=== PATIENT | male | born 1965 | race African-American/Black ===

== ENCOUNTER 2020-12-12 11:47 | Inpatient (IN) | payer OTHER ==
[~2020-12-12] VITALS: Ht 162.6 cm; Wt 65.5 kg
[2020-12-12 11:52] VITALS: BP 111/69
[2020-12-12 14:50] LABS: ABSOLUTE NEUTROPHILS 10.2 thou/uL (1.4-8.2); BASOPHILS 0.3 % (0.0-2.0); HEMATOCRIT 41.2 % (42.0-52.0); HEMOGLOBIN 13.4 gm/dL (14.0-18.0); LYMPHOCYTES 5.6 % (24.0-44.0); MCH 28.3 pg (26.0-34.0); MCHC 32.5 g/dL (28.0-37.0); MONOCYTES 12.4 % (1.0-8.0); PLATELET COUNT 270 thou/uL (150-400); POLYS 81.7 % (36.0-66.0); RBC 4.73 mil/uL (4.50-6.00); RDW 14.3 % (10.5-14.5); WBC 12.5 thou/uL (4.0-11.0)
[2020-12-12 15:06] LABS: CALCIUM 9.5 mg/dL (8.5-10.1); CREATININE 1.5 mg/dL (0.7-1.3); POTASSIUM 4.3 mmol/L (3.5-5.1)
[2020-12-12 15:12] LABS: TOTAL BILIRUBIN 0.6 mg/dL (0.2-1.0); TOTAL PROTEIN 8.4 g/dL (6.4-8.2)
[2020-12-12 15:22] LABS: URINE BILIRUBIN NEGATIVE (Negative); URINE BLOOD 3+ (Negative); URINE CLARITY CLEAR; URINE COLOR YELLOW; URINE GLUCOSE-RANDOM* NEGATIVE (Negative); URINE KETONES NEGATIVE (Negative); URINE LEUKOCYTES-REFLEX 3+ (Negative); URINE NITRITE-REFLEX NEGATIVE (Negative); URINE PROTEIN (DIPSTICK) 2+ (Negative)
[2020-12-12 15:36] LABS: SQUAMOUS 4-10 Moderate /LPF (0-3)
[2020-12-12 15:37] LABS: BACTERIA-REFLEX >30 Many /HPF (None Seen); CRYSTALS None Seen /LPF (None Seen)
[2020-12-12 15:38] LABS: COARSE GRANULAR CASTS 0-3 Few /LPF (None Seen)
[2020-12-12 17:03] VITALS: BP 88/56
[2020-12-12 17:20] VITALS: BP 95/54
--- NOTE | 2020-12-12 19:46 | NUR ---
Pt transferred from ER by tech and arrived on the unit at 17:30. Pt assessed and examined. Pt resting comfortably with no distress at this time. Sister is bedside as designated visitor. RN will continue to monitor.
[2020-12-12 20:46] VITALS: BP 125/81
[2020-12-13 00:06] LABS: GLYCOHEMOGLOBIN (HGB A1C) 6.5 % (4.8-5.6)
[2020-12-13 03:45] VITALS: BP 128/73
[2020-12-13 05:27] LABS: CALCIUM 8.7 mg/dL (8.5-10.1); CREATININE 1.4 mg/dL (0.7-1.3); MAGNESIUM 1.6 mg/dL (1.8-2.4); POTASSIUM 4.1 mmol/L (3.5-5.1)
[2020-12-13 05:58] LABS: ABSOLUTE NEUTROPHILS 9.5 thou/uL (1.4-8.2); BASOPHILS 0.4 % (0.0-2.0); HEMATOCRIT 36.3 % (42.0-52.0); HEMOGLOBIN 11.9 gm/dL (14.0-18.0); LYMPHOCYTES 6.5 % (24.0-44.0); MCH 28.5 pg (26.0-34.0); MCHC 32.7 g/dL (28.0-37.0); MCV 87.3 fL (80.0-100.0); MONOCYTES 14.4 % (1.0-8.0); PLATELET COUNT 198 thou/uL (150-400); POLYS 78.7 % (36.0-66.0); RBC 4.16 mil/uL (4.50-6.00); RDW 14.4 % (10.5-14.5)
[2020-12-13 08:01] VITALS: BP 117/84
--- NOTE | 2020-12-13 13:38 | NUR ---
PT ADMITTED RELATED TO UTI, SEPSIS. CM REVIEWED CHART AND SPOKE WITH CARE TEAM. CM MET WITH PT AT BEDSIDE THIS DAY. PT APPEARED TO BE A&O X4. CM ROLE INTRODUCED. PT INDICATED THAT HE RESIDES IN A CONDO WITH HIS SISTER WITH 12 STEPS TO ENTER AND 12 STEPS INSIDE. PT INDICATED HE HAD BEEN INDEPENDENT WITH GAIT AND ADLS MFTS. PT INDICATED NO DME OR HH HX. PT INIDCATED HIS PCP IS DR. ODALYS CLIFTON AND THAT HE HAD AN APPOINTMENT ON FRIDAY TO SEE HIM BUT THAT HE CAME TO HOSPITAL HE WAS FEELING THAT BADLY. PT INDICATED THAT HE PLANS TO RETURN HOME ONCE MEDICALLY STABLE. CM TO FOLLOW INDICATED WITH DC PLANNING.
[2020-12-13] MEDS ORDERED: COZAAR 25 MG TA25 M1 PO (15:12)
[2020-12-13] MEDS ORDERED: ROSUVASTATIN CA10 MG PO (15:13)
[2020-12-13] MEDS ORDERED: TIMOLOL MALEATE5 M2 OPHTHALMIC (15:15)
[2020-12-13] MEDS ORDERED: PROAIR HFA8.5 GM INH (15:17)
[2020-12-13] MEDS ORDERED: SYMBICORT160 MCG/4. INH (15:18)
--- NOTE | 2020-12-13 16:14 | NUR ---
ASSUMED CARE OF PATIENT AT SHIFT CHNAGE. ASSESSMENT CHARTED. TEMP HIGH; TYLENOL ADMINISTERED FOR FEVER AND HEADACHE Q4HRS. MED REC COMPLETE & PHARMACY CONSULTED. PATIENT IS A&OX4 AND MAKES NEEDS KNOWN. PATIENT STATES HE IS "TIRED" AND WANTS TO SLEEP. PATIENT IN BED MOST OF THIS SHIFT, USING URINAL NEEDED. HAD BM THIS MORNING. TOLERATING REGULAR DIET WELL W NO ISSUES. ABX INFUSING W NO ISSUES. HR STABLIZING THIS SHIFT FROM ST TO SR. SPOUSE AT BEDSIDE. PATIENT VOICING NO FURTHER NEEDS. WILL CONTINUE TO MONITOR AND FOLLOW PLAN OF CARE
--- NOTE | 2020-12-13 17:33 | NUR ---
faxed clinical info to [facility] transfer center & s/w transfer center by phone. they are asking if a rapid covid test can be done. s/W FL[employer] LOCATE TECHNICIAN & SHE SAYS IT WOULD NOT BE BACK TILL LATE THIS JOHN OR IN AM. INFORMED [facility] & THEY ASKED FOR ONE TO BE ORDERED. INFORMED DR CHRIS & S/W SALBADOR MAK ON THE UNIT WHO WILL INFORM PT'S SALBADOR ESPINOZA OF THE NEED FOR THE RAPID COVID TEST TO BE DONE.
[2020-12-13 20:29] VITALS: BP 139/87
[2020-12-14 05:47] LABS: HEMATOCRIT 34.7 % (42.0-52.0); HEMOGLOBIN 11.3 gm/dL (14.0-18.0); MCH 28.4 pg (26.0-34.0); MCHC 32.5 g/dL (28.0-37.0); MCV 87.4 fL (80.0-100.0); RBC 3.97 mil/uL (4.50-6.00); RDW 14.1 % (10.5-14.5); WBC 8.6 thou/uL (4.0-11.0)
[2020-12-14 06:25] LABS: CALCIUM 8.8 mg/dL (8.5-10.1); CREATININE 1.2 mg/dL (0.7-1.3); POTASSIUM 3.7 mmol/L (3.5-5.1)
[2020-12-14 08:19] VITALS: BP 144/94
--- NOTE | 2020-12-14 08:35 | NUR ---
CM REQUESTED FROM RADIOLOGY TO HAVE IMAGES CLOUDED TO [facility]
[2020-12-14] MEDS ORDERED: KEFLEX500 M1 PO (09:03)
--- NOTE | 2020-12-14 09:35 | NUR ---
CM FAXED COVID RESULTS TO [facility] [phone] (F) [phone] (P).
[2020-12-14 11:56] VITALS: BP 149/92
[2020-12-14 13:00] VITALS: BP 132/91
--- NOTE | 2020-12-14 14:06 | NUR ---
cm was informed by pt's rn, family wanted to speak with cm r/t insurance as pt and wanted to know the cost to stay at [facility] oppose to going to a [facility]. cm informed them cm does not to the increase co-pay cost and advised them to contact the HR dept at pt's company and/or insurance company. pt and , both, verbally stated they would like to stay at [facility], oppose to transfering to [facility] being fully aware of higher co-pay.
[2020-12-14 16:34] VITALS: BP 131/77
[2020-12-14 20:50] VITALS: BP 146/92
--- NOTE | 2020-12-15 04:33 | NUR ---
VSS-FEBRILE SPORADICALLY THROUGH [employer] LENS POLISHER. C/O RIGHT FLANK PAIN THAT IS RELIEVED WITH PO TYLENOL. FAIR APPETITE WITH OCCASIONAL SNACKING. VOIDING WELL, PASSING FLATUS. CALLS APPROPRIATELY FOR ANY NEEDED ASSISTANCE.
[2020-12-15 07:40] VITALS: BP 140/94
--- NOTE | 2020-12-15 10:12 | NUR ---
ASSUMED CARE OF PT AT 0700 12/14. PT WAS TO BE DISCHARGED LATER IN THE DAY TRANSFERRING TO [facility]. PT WAS A&OX4, SKIN W/D/P AND INTACT. CR<3SEC, NO TENTING, LUNGS WITH SLIGHT WHEEZING UPPER LOBES BILAT, IV IN RT AC, EYES PERRLA, PT C/O RIGHT FLANK PAIN. CALL LIGHT AND ITEMS PLACED WITHIN REACH. ASSESSMENT OTHERWISE UNREMARKABLE. AFTERNOON, PT'S SISTER REQUESTED THAT PT STAY ONE MORE DAY, BLUEPRINT MAKER SPOKE WITH THE PT AND SISTER. PT IS STAYING ONE MORE DAY.
--- NOTE | 2020-12-15 10:58 | NUR ---
ASSESSED PT THIS MORNING @ 1054, PT WAS A&O X4, LYING IN BED. EYES PERRLA, SKIN W/D/P AND INTACT. LUNGS CLEAR ALL LOBES. PT STATED HE IS FEELING BETTER. PT HAS ELEVATED TEMP AND WAS GIVEN TYLENOL. CR< 3SEC X4, NO TENTING AND INTACT. ASSESSMENT OTHERWISE UNREMAKABLE. PT IS PREPARING FOR DISCHARGE LATER THIS MORNING. IV IN R AC, WITH NS @ 80ML/HR. CALL LIGHT AND OTHER ITEMS WITHIN REACH.
== END 2020-12-15 13:05 | disposition home or self-care (01) | DRG 871 ==
LOC: ER 11:47 → 4W 16:50 → EROBS 16:50 → 4W 17:16
PROVIDERS: Emergency Medicine; Hospitalist; Nurse Practitioner; ADMIT Internal Medicine; ATTEND Internal Medicine
DX: A41.9 Sepsis, unspecified organism (principal); N17.0 Acute kidney failure with tubular necrosis; N12 Tubulo-interstitial nephritis, not specified as acute or chronic; B96.20 Unspecified Escherichia coli [E. coli] as the cause of diseases classified elsewhere; I10 Essential (primary) hypertension; J45.909 Unspecified asthma, uncomplicated; Z20.822 Contact with and (suspected) exposure to COVID-19
CPT/HCPCS: 10045